=== PATIENT | female | born 1985 | race Caucasian/White ===

== ENCOUNTER 2020-07-10 23:12 | Observation (INO) ==
[2020-07-10 20:41] LABS: Protein/Creatinine Ratio,Urine 0.17 mg/mg (0.00-0.20)
[2020-07-10 20:42] LABS: Basophils % 0.3 %; Eosinophils # 0.1 K/mcL (0.0-0.6); Eosinophils % 0.6 %; Hematocrit 32.9 % (35.3-44.9); Immature Granulocytes % 1.1 % (0-4); Lymphocytes # 2.5 K/mcL (0.6-4.6); Lymphocytes % 22.5 %; Mean Corpuscular HGB Conc 32.2 g/dL (31.6-35.5); Mean Corpuscular Hemoglobin 28.4 pg (28.0-33.3); Mean Corpuscular Volume 88.2 fL (83.0-100.0); Mean Platelet Volume 11.5 fL (9.4-12.4); Monocytes # 0.6 K/mcL (0.0-1.3); Monocytes % 5.8 %; Neutrophils # 7.6 K/mcL (1.6-8.9); Platelet Count 204 K/mcL (140-400); Red Blood Count 3.73 M/mcL (3.82-4.97); Red Cell Distribution Width 12.5 % (11.5-14.5); Segmented Neutrophils % 69.7 %; White Blood Count 10.9 K/mcL (4.3-11.1)
[2020-07-10 20:43] LABS: Hemoglobin 10.6 g/dL (11.5-15.4)
[2020-07-10 20:51] LABS: Alanine Aminotransferase 5 Units/L (7-52); Aspartate Amino Transferase 10 Units/L (13-39); BUN/Creatinine Ratio 14 (6-26); Blood Urea Nitrogen 8 mg/dL (6-20); Lactate Dehydrogenase 146 Units/L (140-271); eGFR For African Americans > 60 (> 60); eGFR For Non-African Americans > 60 (> 60)
[2020-07-10 20:58] LABS: Troponin I < 0.03 ng/mL (< 0.04)
[2020-07-10] MEDS: Betamethasone Acet/SodPhos 30 MG/5 ML VIAL IM SCH (21:37)
[2020-07-10] MEDS: NIFEdipine XL (24 HR) 30 MG TAB.ER.24 PO SCH (21:56)
[~2020-07-10 23:12] MED LIST: Acetaminophen 325 MG TABLET PO PRN; NIFEdipine 10 MG CAPSULE PO ONE
[2020-07-10] MEDS ORDERED: NIFEdipine XL (24 HR) 30 MG TAB.ER.24 PO ONE (23:15)
[2020-07-10] MEDS ORDERED: EPHEDrine 50 MG/ML VIAL IVP PRN (23:25)
[2020-07-10] MEDS ORDERED: *HR* FentaNYL (PF) 100 MCG/2 ML VIAL EP ONE (23:25)
[2020-07-10] MEDS ORDERED: Bupivacaine-MPF 0.25% 10 ML VIAL EP ONE (23:25)
[2020-07-10] MEDS ORDERED: Epidural Premix (fent/bupiv) 110 ML EP SCH (23:30)
[2020-07-11] MEDS: NIFEdipine XL (24 HR) 30 MG TAB.ER.24 PO SCH ×2 (18:46→20:49)
[2020-07-11] MEDS ORDERED: NIFEdipine XL (24 HR) 30 MG TAB.ER.24 PO ONE (21:00)
[2020-07-11] MEDS: Betamethasone Acet/SodPhos 30 MG/5 ML VIAL IM SCH (21:46)
[2020-07-11] MEDS ORDERED: miSOPROStoL 25 MCG TABLET PO PRN (22:00)
[2020-07-12 04:43] LABS: Basophils % 0.2 %; Hematocrit 33.2 % (35.3-44.9); Hemoglobin 10.9 g/dL (11.5-15.4); Immature Granulocytes % 1.3 % (0-4); Lymphocytes # 1.6 K/mcL (0.6-4.6); Lymphocytes % 10.9 %; Mean Corpuscular HGB Conc 32.8 g/dL (31.6-35.5); Mean Corpuscular Hemoglobin 28.9 pg (28.0-33.3); Mean Corpuscular Volume 88.1 fL (83.0-100.0); Mean Platelet Volume 11.4 fL (9.4-12.4); Monocytes # 0.3 K/mcL (0.0-1.3); Neutrophils # 12.6 K/mcL (1.6-8.9); Platelet Count 236 K/mcL (140-400); Red Blood Count 3.77 M/mcL (3.82-4.97); Red Cell Distribution Width 12.5 % (11.5-14.5); Segmented Neutrophils % 85.6 %; White Blood Count 14.7 K/mcL (4.3-11.1)
[2020-07-12 04:54] LABS: Protein/Creatinine Ratio,Urine 0.2 mg/mg (0.00-0.20)
[2020-07-12 05:05] LABS: Alanine Aminotransferase 6 Units/L (7-52); Aspartate Amino Transferase 10 Units/L (13-39); BUN/Creatinine Ratio 22 (6-26); Blood Urea Nitrogen 12 mg/dL (6-20); Lactate Dehydrogenase 149 Units/L (140-271); Uric Acid 6.3 mg/dL (2.3-7.6); eGFR For African Americans > 60 (> 60); eGFR For Non-African Americans > 60 (> 60)
[2020-07-12] MEDS ORDERED: NIFEdipine XL (24 HR) 30 MG TAB.ER.24 PO ONE (12:17)
== END 2020-07-12 18:44 | disposition home or self-care (01) ==
LOC: 1NENULAB
PROVIDERS: ADMIT Obstetrics & Gynecology; ATTEND Obstetrics & Gynecology

== ENCOUNTER 2020-07-15 05:23 | Inpatient (IN) ==
[2020-07-15] MEDS ORDERED: *HR* FentaNYL (PF) 100 MCG/2 ML VIAL IVP PRN (05:30)
[2020-07-15] MEDS ORDERED: Naloxone 0.4 MG/ML INJ IVP PRN (05:30)
[2020-07-15] MEDS ORDERED: Lidocaine 1% 20 ML MDV INFILT PRN (05:30)
[2020-07-15] MEDS ORDERED: Ondansetron 4 MG/2 ML VIAL IVP PRN ×4 (05:30→18:26)
[2020-07-15] MEDS ORDERED: miSOPROStoL 25 MCG TABLET PO PRN (05:30)
[2020-07-15] MEDS ORDERED: Azithromycin 500 MG in 0.9 % Sodium Chloride 250 ML IVPB ONE (05:30)
[2020-07-15] MEDS ORDERED: Famotidine 20 MG/2 ML VIAL IVP PRN (05:30)
[2020-07-15] MEDS ORDERED: Metoclopramide 10 MG/2 ML VIAL IVP PRN ×2 (05:30→18:26)
[2020-07-15 06:12] LABS: Basophils # 0.1 K/mcL (0.0-0.2); Basophils % 0.4 %; Eosinophils % 0.1 %; Hematocrit 35.2 % (35.3-44.9); Hemoglobin 11.6 g/dL (11.5-15.4); Immature Granulocytes % 2.1 % (0-4); Lymphocytes # 3.3 K/mcL (0.6-4.6); Lymphocytes % 24.5 %; Mean Corpuscular Hemoglobin 28.6 pg (28.0-33.3); Mean Corpuscular Volume 86.7 fL (83.0-100.0); Mean Platelet Volume 10.6 fL (9.4-12.4); Monocytes # 0.9 K/mcL (0.0-1.3); Neutrophils # 8.9 K/mcL (1.6-8.9); Nucleated Red Blood Cells 0.1 /100 WBC (0); Platelet Count 245 K/mcL (140-400); Red Blood Count 4.06 M/mcL (3.82-4.97); Red Cell Distribution Width 12.4 % (11.5-14.5); Segmented Neutrophils % 65.9 %; White Blood Count 13.5 K/mcL (4.3-11.1)
[2020-07-15 06:36] LABS: Alanine Aminotransferase 9 Units/L (7-52); Aspartate Amino Transferase 15 Units/L (13-39); BUN/Creatinine Ratio 23 (6-26); Blood Urea Nitrogen 13 mg/dL (6-20); Lactate Dehydrogenase 191 Units/L (140-271); Uric Acid 6.2 mg/dL (2.3-7.6); eGFR For African Americans > 60 (> 60); eGFR For Non-African Americans > 60 (> 60)
[2020-07-15] MEDS ORDERED: EPHEDrine 50 MG/ML VIAL IVP PRN (08:28)
[2020-07-15] MEDS ORDERED: Epidural Premix (fent/bupiv) 110 ML EP SCH (08:30)
[2020-07-15 09:51] LABS: Amphetamine Screen,Urine Negative ng/mL (Cutoff=1000); Barbiturate Screen,Urine Negative ng/mL (Cutoff=200); Benzodiazepines Screen,Urine Negative ng/mL (Cutoff=200); Cannabinoid Screen,Urine Negative ng/mL (Cutoff = 50); Cocaine Screen,Urine Negative ng/mL (Cutoff= 300); Opiate Screen,Urine Negative ng/mL (Cutoff=300); Phencyclidine Screen,Urine Negative ng/mL (Cutoff=25)
[2020-07-15] MEDS ORDERED: NIFEdipine 10 MG CAPSULE PO ONE (09:58)
[2020-07-15 10:21] LABS: Creatinine,Urine 37 mg/dL; Protein/Creatinine Ratio,Urine 0.68 mg/mg (0.00-0.20)
[2020-07-15] MEDS ORDERED: Oxytocin 20 units/ LR 1000 mL 20 UNIT/1,000 ML BAG IVC SCH ×2 (11:15→18:26)
[2020-07-15] MEDS ORDERED: Ringers Solution, Lactated 1,000 ML ONE ×2 (11:17→13:22)
[2020-07-15] MEDS ORDERED: D5% in 0.45% NACL 1,000 ML IVC SCH (11:30)
[2020-07-15] MEDS ORDERED: Ropivacaine/PF 0.2% 20 ML VIAL ONE (11:45)
[2020-07-15] MEDS ORDERED: *HR* FentaNYL (PF) 100 MCG/2 ML VIAL ONE (11:45)
[2020-07-15] MEDS ORDERED: CeFAZolin 2,000 MG/50 ML BAG IVPB ONE (14:24)
[2020-07-15] MEDS ORDERED: Oxytocin 20 units/ LR 1000 mL 40 UNIT/2,000 ML BAG IVC ONE (14:25)
[2020-07-15] MEDS ORDERED: *HR* Propofol 200 MG/20 ML VIAL IVP ONE (14:26)
[2020-07-15] MEDS ORDERED: *HR* Morphine Sulfate/PF 10 MG/10 ML AMPUL ONE (14:32)
[2020-07-15] MEDS ORDERED: *HR* Phenylephrine 10 MG/ML VIAL ONE (14:37)
[2020-07-15] MEDS ORDERED: *HR* HYDROmorphone (PF) 1 MG/ML SYRINGE IVP PRN (14:40)
[2020-07-15] MEDS ORDERED: *HR* HYDROmorphone PF 0.5 MG/0.5 ML SYRINGE IVP PRN (14:41)
[2020-07-15] MEDS ORDERED: *HR* OxyCODONE Immed Rel 5 MG TABLET PO PRN ×2 (14:41→18:26)
[2020-07-15] MEDS ORDERED: *HR* Meperidine 25 MG/ML SYRINGE IVP PRN (14:41)
[2020-07-15] MEDS ORDERED: Lidocaine/EPI 1:200k 2% PF 20 ML VIAL ONE (14:45)
[2020-07-15] MEDS ORDERED: Ketorolac 30 MG/ML VIAL ONE (14:45)
[2020-07-15] MEDS ORDERED: Acetaminophen IV 1,000 MG/100 ML INFUS..BTL ONE (14:45)
[2020-07-15] MEDS ORDERED: Rho Immune Globulin 1,500 UNIT SYRINGE IM ONE (18:26)
[2020-07-15] MEDS ORDERED: Measles/Mumps/Rubella Vacc 0.5 ML VIAL SQ ONE (18:26)
[2020-07-15] MEDS: Acetaminophen 325 MG TABLET PO SCH (20:13)
[2020-07-15] MEDS: Simethicone 80 MG TAB.CHEW PO PRN (20:13)
[2020-07-15] MEDS: metroNIDAZOLE 500 MG TABLET PO SCH (20:14)
[2020-07-15] MEDS: cephALEXin 500 MG CAPSULE PO SCH (20:14)
[2020-07-15] MEDS ORDERED: NIFEdipine XL (24 HR) 30 MG TAB.ER.24 PO SCH (21:00)
[2020-07-15] MEDS: Ibuprofen 600 MG TABLET PO SCH (23:03)
[2020-07-16] MEDS ORDERED: Ibuprofen 600 MG TABLET PO SCH
[2020-07-16] MEDS ORDERED: Acetaminophen 325 MG TABLET PO SCH
[2020-07-16] MEDS: Acetaminophen 325 MG TABLET PO SCH ×3 (02:41→14:45)
[2020-07-16] MEDS: Ibuprofen 600 MG TABLET PO SCH ×3 (05:24→19:32)
[2020-07-16 06:56] LABS: Basophils # 0.1 K/mcL (0.0-0.2); Basophils % 0.3 %; Eosinophils % 0.2 %; Hematocrit 26.5 % (35.3-44.9); Immature Granulocytes % 0.9 % (0-4); Lymphocytes # 3.1 K/mcL (0.6-4.6); Lymphocytes % 16.7 %; Mean Corpuscular HGB Conc 32.1 g/dL (31.6-35.5); Mean Corpuscular Hemoglobin 28.2 pg (28.0-33.3); Mean Platelet Volume 10.6 fL (9.4-12.4); Monocytes # 0.9 K/mcL (0.0-1.3); Neutrophils # 14.2 K/mcL (1.6-8.9); Platelet Count 218 K/mcL (140-400); Red Blood Count 3.01 M/mcL (3.82-4.97); Red Cell Distribution Width 12.5 % (11.5-14.5); Segmented Neutrophils % 76.9 %; White Blood Count 18.5 K/mcL (4.3-11.1)
[2020-07-16 06:57] LABS: Hemoglobin 8.5 g/dL (11.5-15.4)
[2020-07-16 07:15] LABS: Alanine Aminotransferase 8 Units/L (7-52); Aspartate Amino Transferase 22 Units/L (13-39); BUN/Creatinine Ratio 16 (6-26); Blood Urea Nitrogen 7 mg/dL (6-20); Lactate Dehydrogenase 166 Units/L (140-271); Uric Acid 5.6 mg/dL (2.3-7.6); eGFR For African Americans > 60 (> 60); eGFR For Non-African Americans > 60 (> 60)
[2020-07-16] MEDS: cephALEXin 500 MG CAPSULE PO SCH ×3 (09:18→19:38)
[2020-07-16] MEDS: Prenatal Vit/FA 1 EACH TABLET PO SCH (09:19)
[2020-07-16] MEDS: metroNIDAZOLE 500 MG TABLET PO SCH ×3 (09:24→19:38)
[2020-07-16] MEDS ORDERED: Calcium Gluconate 1,000 MG/10 ML VIAL IVP PRN (09:38)
[2020-07-16] MEDS ORDERED: Ringers Solution, Lactated 1,000 ML ONE (10:02)
[2020-07-16] MEDS: Simethicone 80 MG TAB.CHEW PO PRN (11:07)
[2020-07-16] MEDS: NIFEdipine XL (24 HR) 30 MG TAB.ER.24 PO SCH ×2 (11:08→19:38)
[2020-07-16] MEDS: Magnesium Sulf 20 gm/SW 500mL 20 GM/500 ML IV.SOLN IVC SCH ×2 (11:12→21:45)
[2020-07-16 11:16] LABS: Basophils # 0.1 K/mcL (0.0-0.2); Basophils % 0.3 %; Eosinophils # 0.1 K/mcL (0.0-0.6); Eosinophils % 0.3 %; Hematocrit 31.3 % (35.3-44.9); Hemoglobin 9.9 g/dL (11.5-15.4); Immature Granulocytes % 1.3 % (0-4); Lymphocytes # 3.8 K/mcL (0.6-4.6); Lymphocytes % 15.8 %; Mean Corpuscular HGB Conc 31.6 g/dL (31.6-35.5); Mean Corpuscular Volume 88.7 fL (83.0-100.0); Mean Platelet Volume 10.4 fL (9.4-12.4); Monocytes # 1.4 K/mcL (0.0-1.3); Neutrophils # 18.2 K/mcL (1.6-8.9); Platelet Count 326 K/mcL (140-400); Red Blood Count 3.53 M/mcL (3.82-4.97); Red Cell Distribution Width 12.7 % (11.5-14.5); Segmented Neutrophils % 76.3 %; White Blood Count 23.9 K/mcL (4.3-11.1)
[2020-07-16 11:47] LABS: Alanine Aminotransferase 10 Units/L (7-52); Aspartate Amino Transferase 26 Units/L (13-39); BUN/Creatinine Ratio 13 (6-26); Blood Urea Nitrogen 8 mg/dL (6-20); Uric Acid 5.5 mg/dL (2.3-7.6); eGFR For African Americans > 60 (> 60); eGFR For Non-African Americans > 60 (> 60)
[2020-07-16 12:24] LABS: Protein/Creatinine Ratio,Urine 1.27 mg/mg (0.00-0.20)
[2020-07-16] MEDS: Ringers Solution, Lactated 1,000 ML IVC SCH (21:46)
[2020-07-17] MEDS: Acetaminophen 325 MG TABLET PO SCH ×2 (00:08→07:52)
[2020-07-17] MEDS: Ibuprofen 600 MG TABLET PO SCH ×3 (05:38→21:27)
[2020-07-17] MEDS: Simethicone 80 MG TAB.CHEW PO PRN (05:38)
[2020-07-17] MEDS: Ringers Solution, Lactated 1,000 ML IVC SCH (06:05)
[2020-07-17] MEDS ORDERED: Rho Immune Globulin 1,500 UNIT SYRINGE IM ONE ×2 (07:36→07:56)
[2020-07-17] MEDS: Magnesium Sulf 20 gm/SW 500mL 20 GM/500 ML IV.SOLN IVC SCH (07:38)
[2020-07-17] MEDS: metroNIDAZOLE 500 MG TABLET PO SCH (07:39)
[2020-07-17] MEDS: cephALEXin 500 MG CAPSULE PO SCH (07:39)
[2020-07-17] MEDS: Prenatal Vit/FA 1 EACH TABLET PO SCH (07:40)
[2020-07-18] MEDS: Ibuprofen 600 MG TABLET PO SCH (07:53)
[2020-07-18] MEDS: Prenatal Vit/FA 1 EACH TABLET PO SCH (07:54)
[2020-07-18] MEDS: Simethicone 80 MG TAB.CHEW PO PRN (08:07)
[2020-07-18 11:17] VITALS: BP 158/102
[2020-07-18] MEDS ORDERED: NIFEdipine XL (24 HR) 30 MG TAB.ER.24 PO SCH (13:15)
== END 2020-07-18 13:30 | disposition home or self-care (01) | DRG 787 ==
LOC: 1NENULAB 05:23 → 1NENUOBS 17:31
PROVIDERS: ADMIT Obstetrics & Gynecology; ATTEND Obstetrics & Gynecology